=== PATIENT | female | born 1980 | race Caucasian/White ===

== ENCOUNTER 2017-08-26 17:07 | Emergency (ER) | payer OTHER ==
[~2017-08-26] VITALS: Ht 175.3 cm; Wt 68.5 kg
[2017-08-26 17:08] VITALS: BP 135/85
[2017-08-26] MEDS ORDERED: KETOROLAC 30 MG/1 ML ONE (18:12)
[2017-08-26] MEDS ORDERED: HYDROcodone/APAP 5/325 TABLET ONE (18:12)
[2017-08-26] MEDS ORDERED: HYDROcodone/APAP 5/325 TABLET PO ONE (18:30)
[2017-08-26] MEDS ORDERED: KETOROLAC 30 MG/1 ML IM ONE (18:30)
== END 2017-08-26 19:01 | disposition home or self-care (01) ==
LOC: ED 18:50
DX: S20.212A Contusion of left front wall of thorax, initial encounter (principal); W22.8XXA Striking against or struck by other objects, initial encounter; Y93.89 Activity, other specified; Y92.098 Other place in other non-institutional residence as the place of occurrence of the external cause; Y99.8 Other external cause status
CPT/HCPCS: 71101; 96372; 99284; J1885